=== PATIENT | female | born 1965 | race Caucasian/White ===

== ENCOUNTER 2020-08-19 13:25 | Emergency (ER) | payer OTHER ==
[~2020-08-19 13:25] MED LIST: PREDNISONE20 MG PO
[2020-08-19] MEDS ORDERED: CYCLOBENZAPRINE10 MG PO (17:19)
== END 2020-08-19 17:29 | disposition home or self-care (01) ==
LOC: FER 13:25
DX: M79.605 Pain in left leg (principal); J44.9 Chronic obstructive pulmonary disease, unspecified; Z88.6 Allergy status to analgesic agent
CPT/HCPCS: 93971

== ENCOUNTER 2020-11-05 11:35 | Day surgery (SDCO) | payer OTHER ==
[~2020-11-05] VITALS: Ht 160 cm; Wt 97.3 kg
[~2020-11-05 11:35] MED LIST changes: +CYCLOBENZAPRINE10 MG PO
[2020-11-05 12:09] LABS: BASOPHIL 0.7 % (0-2); EOSINOPHIL 0.9 % (0-5); HCT 45.6 % (37.0-47.0); HGB 15.6 g/dl (12.5-16.0); LYMPHOCYTE 21.1 % (15-48); MCH 33.2 pg (25.0-31.0); MCHC 34.2 g/dL (32.0-36.0); MONOCYTE 12.8 % (0-12); MPV 9.7 fL (6.0-9.5); NEUTROPHIL 64.1 % (41-80); NRBC 0; PLT 311 K/uL (150-400); RDW 13.1 % (11.5-14.0)
[2020-11-05 12:20] LABS: INR 0.99 (0.9-1.2); PROTHROMBIN TIME 12.5 SECONDS (11.8-13.4); PTT 26.4 SECONDS (24.4-34.7)
[2020-11-05 12:36] LABS: ALBUMIN 3.8 g/dL (3.4-5.0); BILIRUBIN - TOTAL 0.3 mg/dL (0.2-1.0); BUN/CREAT RATIO (CALC) 19.7 RATIO; CREATININE 0.71 mg/dL (0.51-0.95); GLOBULIN (CALCULATION) 3.7 g/dL; POTASSIUM 3.6 mmol/L (3.5-5.1); TOTAL PROTEIN 7.5 g/dL (6.4-8.2)
[2020-11-05 13:21] LABS: LACTIC ACID 1.3 mmol/L (0.4-1.9)
[2020-11-05] MEDS ORDERED: BREO ELLIPTA 11 EACH INH (14:59)
[2020-11-05] MEDS ORDERED: VENTOLIN HFA18 GM INH (15:00)
[2020-11-05] MEDS ORDERED: breo ellipta INH (15:43)
[2020-11-05] MEDS ORDERED: ALL DAY ALLERGY10 M2 PO (15:43)
[2020-11-05] MEDS ORDERED: VENTOLIN HFA IN18 GM INH (15:44)
[2020-11-05] MEDS ORDERED: PEPCID AC20 MG PO (15:44)
[2020-11-05] MEDS ORDERED: MONTELUKAST SOD10 MG PO (15:45)
[2020-11-05] MEDS ORDERED: HCTZ25 MG PO (15:45)
[2020-11-05] MEDS ORDERED: GABAPENTIN600 MG PO (15:45)
[2020-11-05] MEDS ORDERED: ATARAX25 MG PO (15:47)
[2020-11-05] MEDS ORDERED: FLEXERIL5 MG PO (15:49)
[2020-11-06 05:52] LABS: HCT 43.8 % (37.0-47.0); HGB 15.3 g/dl (12.5-16.0); MCH 33.3 pg (25.0-31.0); MCHC 34.9 g/dL (32.0-36.0); MCV 95.4 fL (78.0-100.0); MPV 9.9 fL (6.0-9.5); RBC 4.59 M/uL (4.20-5.40); RDW 12.5 % (11.5-14.0); WBC 13.3 K/uL (4.0-10.5)
[2020-11-06 06:16] LABS: BUN/CREAT RATIO (CALC) 21.4 RATIO; CREATININE 0.56 mg/dL (0.51-0.95); POTASSIUM 4.2 mmol/L (3.5-5.1)
[2020-11-06] MEDS ORDERED: MUCINEX 600MG600 MG PO (09:29)
[2020-11-06] MEDS ORDERED: NICOTROL10 MG INH (09:29)
[2020-11-06] MEDS ORDERED: MEDROL 4MG DOSEP4 MG PO (09:30)
== END 2020-11-06 10:13 | disposition home or self-care (01) ==
LOC: FER 11:35 → FMS 13:48
PROVIDERS: Emergency Medicine Emergency Medical Services; Hospitalist; ADMIT Internal Medicine
DX: J44.1 Chronic obstructive pulmonary disease with (acute) exacerbation (principal); J44.0 Chronic obstructive pulmonary disease with (acute) lower respiratory infection; J20.9 Acute bronchitis, unspecified; J96.01 Acute respiratory failure with hypoxia; Z90.49 Acquired absence of other specified parts of digestive tract; Z88.5 Allergy status to narcotic agent; Z88.6 Allergy status to analgesic agent; F17.210 Nicotine dependence, cigarettes, uncomplicated; Z20.822 Contact with and (suspected) exposure to COVID-19; R94.31 Abnormal electrocardiogram [ECG] [EKG]; K21.9 Gastro-esophageal reflux disease without esophagitis
CPT/HCPCS: 36415; 71045; 80048; 80053; 83605; 83880; 84145; 84484; 85025; 85379; 85610; 85730; 87040; 93005; 94640; 94664; G0378; J0696; J1650; J2270; J2405; J2920; J2930; U0002

== ENCOUNTER 2021-04-22 16:42 | Inpatient (IN) | payer OTHER ==
[~2021-04-22] VITALS: Ht 160 cm; Wt 92.6 kg
[~2021-04-22 16:42] MED LIST changes: +ALL DAY ALLERGY10 M2 PO; +ATARAX25 MG PO; +BREO ELLIPTA 11 EACH INH; +FLEXERIL5 MG PO; +GABAPENTIN600 MG PO; +HCTZ25 MG PO; +MEDROL 4MG DOSEP4 MG PO; +MONTELUKAST SOD10 MG PO; +MUCINEX 600MG600 MG PO; +NICOTROL10 MG INH; +PEPCID AC20 MG PO; +VENTOLIN HFA IN18 GM INH; +VENTOLIN HFA18 GM INH; +breo ellipta INH
[2021-04-22 17:58] LABS: BASOPHIL 0.2 % (0-2); EOSINOPHIL 0.1 % (0-5); HCT 43.6 % (37.0-47.0); HGB 14.9 g/dl (12.5-16.0); LYMPHOCYTE 10.3 % (15-48); MCH 32.7 pg (25.0-31.0); MCHC 34.2 g/dL (32.0-36.0); MCV 95.8 fL (78.0-100.0); MONOCYTE 2.7 % (0-12); MPV 9.7 fL (6.0-9.5); NEUTROPHIL 86.4 % (41-80); NRBC 0; PLT 323 K/uL (150-400); RBC 4.55 M/uL (4.20-5.40); RDW 13.1 % (11.5-14.0); WBC 13.1 K/uL (4.0-10.5)
[2021-04-22 18:13] LABS: BUN 12 mg/dL (7-18); BUN/CREAT RATIO (CALC) 18.5 RATIO; CHLORIDE 93 mmol/L (98-107); CO2 (BICARBONATE) 23 mmol/L (21-32); CREATININE 0.65 mg/dL (0.51-0.95); GLUCOSE 105 mg/dL (74-106); POTASSIUM 3.6 mmol/L (3.5-5.1)
[2021-04-22 18:49] LABS: CORONAVIRUS 2019 SARS-COV-2 NEGATIVE (NEGATIVE); INFLUENZA A NAA NEGATIVE (NEGATIVE)
[2021-04-22] MEDS ORDERED: PROMETHAZINE/C120 ML PO (23:09)
[2021-04-23 07:12] LABS: BASOPHIL 0.3 % (0-2); EOSINOPHIL 0 % (0-5); HCT 45.3 % (37.0-47.0); HGB 15.4 g/dl (12.5-16.0); LYMPHOCYTE 11.7 % (15-48); MCH 32.8 pg (25.0-31.0); MCV 96.6 fL (78.0-100.0); MPV 9.6 fL (6.0-9.5); NEUTROPHIL 85.6 % (41-80); NRBC 0; PLT 306 K/uL (150-400); RBC 4.69 M/uL (4.20-5.40); RDW 13.2 % (11.5-14.0)
[2021-04-23 08:09] LABS: BUN/CREAT RATIO (CALC) 25.9 RATIO; CREATININE 0.58 mg/dL (0.51-0.95); POTASSIUM 3.9 mmol/L (3.5-5.1)
[2021-04-24] MEDS ORDERED: AFRIN15 M1 (10:35)
[2021-04-24] MEDS ORDERED: VIBRAMYCIN100 MG PO (10:35)
[2021-04-24] MEDS ORDERED: PREDNISONE 20MG20 MG PO (10:35)
== END 2021-04-24 11:12 | disposition home or self-care (01) | DRG 189 ==
LOC: FER 16:42 → FMS 20:59
PROVIDERS: Allergy & Immunology; Nurse Practitioner Family; ADMIT Family Medicine
DX: J96.01 Acute respiratory failure with hypoxia (principal); J44.1 Chronic obstructive pulmonary disease with (acute) exacerbation; Z20.822 Contact with and (suspected) exposure to COVID-19; R73.9 Hyperglycemia, unspecified; T38.0X5A Adverse effect of glucocorticoids and synthetic analogues, initial encounter; K21.9 Gastro-esophageal reflux disease without esophagitis; F17.200 Nicotine dependence, unspecified, uncomplicated; I10 Essential (primary) hypertension; Z90.49 Acquired absence of other specified parts of digestive tract; Z90.710 Acquired absence of both cervix and uterus; Z98.890 Other specified postprocedural states; Z88.6 Allergy status to analgesic agent; Z82.5 Family history of asthma and other chronic lower respiratory diseases; Z79.899 Other long term (current) drug therapy; Z96.653 Presence of artificial knee joint, bilateral; Z88.8 Allergy status to other drugs, medicaments and biological substances
CPT/HCPCS: 36415; 36600; 71045; 80048; 82803; 83735; 83880; 84484; 85025; 85379; 93005; 94010; 94664; J1100; J1650; J2405; J2930; J3480; J7050; U0002